=== PATIENT | female | born 1960 | race Caucasian/White ===

== ENCOUNTER 2016-12-20 22:34 | Emergency (ER) | payer OTHER ==
[~2016-12-20] VITALS: Ht 167.6 cm; Wt 72.7 kg
[~2016-12-20 22:34] MED LIST: BENEFIBER236 GM PO; CALCIUM 500 +1 EACH PO; CHOLESTYRAMINE P4 GM PO; CLOBETASOL PROP60 GM TP; DAILY VITAMIN1 EAC2 PO; DAILY VITAMIN1 EAC8 PO; HALOBETASOL PRO15 G1 TP; HYDROCODON-ACE1 EAC7 PO; NOHOMEMEDS; TYLENOL EXTRA500 MG PO; TYLENOL REGULA325 MG PO; ZOFRAN4 MG PO; [UNRECOGNIZED DRUG - OTHER] BOTH EYES
[2016-12-20 23:09] LABS: HEMATOCRIT 40.2 % (36.0-46.0); MCH 30.7 PG (29.0-34.0); MCHC 34.8 G/DL (30.0-36.0); MCV 88.2 FL (83-99); MEAN PLAT.VOLUME 11.2 uM^3 (9.5-12.4); PLATELET COUNT 339 K/uL (156-360); RBC DIS.WIDTH-CV 11.7 % (11.8-14.6); RBC DIS.WIDTH-SD 37.2 % (39-53); RED BLOOD COUNT 4.56 M/uL (3.80-5.20)
[2016-12-20 23:17] LABS: ADD MIUA? NO; BILIRUBIN NEGATIVE; BLOOD NEGATIVE; COLOR YELLOW ((YELLOW)); GLUCOSE (STRIP) NEGATIVE; KETONES NEGATIVE; LEUKOCYTES NEGATIVE; NITRITE NEGATIVE; PROTEIN (STRIP) NEGATIVE; SPECIFIC GRAVITY 1.011 (1.000-1.030); UCUL ADDED? NO; UROBILINOGEN 0.2 MG/DL (0.2-1.0)
[2016-12-20 23:23] LABS: CHLORIDE 104 mEq/L (99-109); POTASSIUM 3.6 mEq/L (3.7-5.4); SODIUM 138 mEq/L (136-147)
[2016-12-20 23:25] LABS: GLUCOSE 111 mg/dL (70-99)
[2016-12-20 23:26] LABS: ANION GAP 10 MEQ/L (2-14)
[2016-12-20 23:27] LABS: TOTAL BILIRUBIN 0.8 mg/dL (0.0-1.0)
[2016-12-20 23:28] LABS: ALKALINE PHOSPHATASE 70 IU/L (3-129)
[2016-12-20 23:29] LABS: GFR ESTIMATE (CALCULATED) > 59 mL/min/
[2016-12-20 23:30] LABS: UREA NITROGEN (BUN) 6 mg/dL (9-23)
[2016-12-20 23:32] LABS: LIPASE 38 U/L (1.0-51.0)
[2016-12-21 01:10] LABS: INFLUENZA A VIRAL ANTIGEN POSITIVE; INFLUENZA B VIRAL ANTIGEN NEGATIVE
[2016-12-21] MEDS ORDERED: ZOFRAN4 MG PO (02:12)
[2016-12-21 02:43] VITALS: BP 121/86
[2016-12-21] MEDS ORDERED: PROGESTERONE100 MG PO (17:44)
[2016-12-21] MEDS ORDERED: CALCIUM 500 +1 EAC2 PO (17:46)
[2016-12-21] MEDS ORDERED: CLOBETASOL PROP60 G2 TP (17:47)
[2016-12-21] MEDS ORDERED: QUESTRAN PACKET4 GM PO (17:47)
[2016-12-21] MEDS ORDERED: DAILY VALUE1 EACH PO (17:49)
[2016-12-21] MEDS ORDERED: ATORVASTATIN CA10 MG PO (17:51)
== END 2016-12-21 02:44 | disposition home or self-care (01) ==
LOC: EME 22:34
PROVIDERS: Physician Assistant
DX: J10.2 Influenza due to other identified influenza virus with gastrointestinal manifestations (principal); Z85.828 Personal history of other malignant neoplasm of skin; Z87.891 Personal history of nicotine dependence
CPT/HCPCS: 74177; 80053; 81003; 83690; 85027; 87502; 99281; 99285; J1885; J2405; J3010; J7030